=== PATIENT | female | born 1965 | race Caucasian/White ===

== ENCOUNTER 2017-06-17 15:27 | Emergency (ER) | payer OTHER ==
[2017-06-17] MEDS ORDERED: PEPCID IV ONE (17:33)
[2017-06-17] MEDS ORDERED: LIDOCAINE VISCOUS 2% MM STA (17:33)
--- NOTE | 2017-06-17 17:35 | Emergency Department Report ---
ED General Adult HPI - General Chief complaint: Allergic Reaction Stated complaint: ALLERGIC REACTION Time Seen by Provider: 06/17/17 17:28 Source: patient, RN notes reviewed Mode of arrival: Stretcher Limitations: No Limitations - History of Present Illness Initial comments: This is a 52-year-old female. She is previously unknown to me. She has a past medical history of hypertension and migraine disorder. She reports exquisite sensitivity to seafood. She reports that she was out eating, and smelled seafood, and began to have a scratchy sensation in her throat. She self- administered epinephrine. This started at 2:00 PM. Her symptoms are mostly resolved. She still feels somewhat anxious, and subjectively feels like her throat is scratchy. No headache, neck pain, chest pain, abdominal pain or stridor. -: Sudden Location: face Consistency: now resolved Improves with: medication Associated Symptoms: denies other symptoms - Related Data Previous Rx's Medication Instructions Recorded Last Taken Type EPINEPHrine [Epipen 2-Claude] 0.3 mg IM DAILY PRN #2 ml 06/17/17 Unknown Rx Famotidine [Pepcid] 20 mg PO BID #10 tablet 06/17/17 Unknown Rx diphenhydrAMINE [Benadryl] 50 mg PO Q8HR PRN #20 capsule 06/17/17 Unknown Rx Allergies Allergy/AdvReac Type Severity Reaction Status Date / Time iodine Allergy Angioedema Verified 06/17/17 15:53 Penicillins Allergy Angioedema Verified 06/17/17 15:53 shellfish derived Allergy Angioedema Verified 06/17/17 15:53 ED Review of Systems ROS: Stated complaint: ALLERGIC REACTION Other details as noted in HPI Constitutional: denies: fever Eyes: denies: vision change ENT: throat pain. denies: epistaxis, congestion Respiratory: denies: shortness of breath Cardiovascular: denies: chest pain Gastrointestinal: denies: abdominal pain Genitourinary: denies: urgency, dysuria Musculoskeletal: denies: back pain Skin: denies: lesions Neurological: weakness. denies: headache Psychiatric: anxiety ED Past Medical Hx - Past Medical History Previous Medical History?: Yes Hx Hypertension: Yes Hx Kidney Stones: Yes - Surgical History Past Surgical History?: Yes Additional Surgical History: breast biopsy - Social History Smoking Status: Never Smoker Substance Use Type: Alcohol - Medications Home Medications: Home Medications Medication Instructions Recorded Confirmed Last Taken Type EPINEPHrine [Epipen 2-Claude] 0.3 mg IM DAILY PRN #2 ml 06/17/17 Unknown Rx Famotidine [Pepcid] 20 mg PO BID #10 tablet 06/17/17 Unknown Rx diphenhydrAMINE [Benadryl] 50 mg PO Q8HR PRN #20 capsule 06/17/17 Unknown Rx ED Physical Exam - General Limitations: No Limitations General appearance: alert, in no apparent distress - Head Head exam: Present: atraumatic, normocephalic - Eye Eye exam: Present: normal appearance, EOMI. Absent: nystagmus - ENT ENT exam: Present: normal exam, normal orophraynx, mucous membranes moist, TM's normal bilaterally, normal external ear exam, other (the patient is speaking in full sentences. There is no stridor or dysphonia. There is no uvula swelling. There is no family tracheal manipulation) - Neck Neck exam: Present: normal inspection, full ROM. Absent: tenderness, meningismus - Respiratory Respiratory exam: Present: normal lung sounds bilaterally. Absent: respiratory distress, wheezes, rales, rhonchi, stridor, chest wall tenderness - Cardiovascular Cardiovascular Exam: Present: regular rate, normal rhythm, normal heart sounds. Absent: bradycardia, tachycardia, irregular rhythm, systolic murmur, diastolic murmur, rubs, gallop - GI/Abdominal GI/Abdominal exam: Present: soft, normal bowel sounds. Absent: distended, tenderness, guarding, rebound, rigid, pulsatile mass - Extremities Exam Extremities exam: Present: normal inspection, full ROM, normal capillary refill. Absent: tenderness, pedal edema, joint swelling, calf tenderness - Back Exam Back exam: Present: normal inspection, full ROM. Absent: tenderness, CVA tenderness (R), CVA tenderness (L), muscle spasm, paraspinal tenderness, vertebral tenderness - Neurological Exam Neurological exam: Present: alert, oriented X3, normal gait, other (Extraocular movements intact. Tongue midline. No facial droop. Facial sensation intact to light touch in the V1, V2, V3 distribution bilaterally. 5 and 5 strength in 4 extremities.. Sensation is intact to light touch in 4 extremities.). Absent : motor sensory deficit - Psychiatric Psychiatric exam: Present: anxious - Skin Skin exam: Present: warm, dry, intact, normal color. Absent: rash ED Course Vital Signs 06/17/17 06/17/17 15:53 18:40 Temperature 98 F Pulse Rate 77 64 Respiratory 16 16 Rate Blood Pressure 112/75 Blood Pressure 101/64 [Left] O2 Sat by Pulse 96 96 Oximetry ED Medical Decision Making - Lab Data Vital Signs 06/17/17 06/17/17 15:53 18:40 Temperature 98 F Pulse Rate 77 64 Respiratory 16 16 Rate Blood Pressure 112/75 Blood Pressure 101/64 [Left] O2 Sat by Pulse 96 96 Oximetry - Medical Decision Making Differential diagnosis: Allergic reaction, mild, pharyngitis Assessment and plan: 52-year-old female who is approximately 5 and half hours status post exposure to known allergens. She is afebrile with reassuring vital signs, speaking in full sentences, without stridor, dysphonia or clinical indication of upper airway compromise. Her initial physical exam was unremarkable, and her. Physical exam is unremarkable. She self-administered epinephrine and gave herself Benadryl prior to my evaluation prior to coming to the hospital. Patient has remained clinically stable at this time, with no evidence of airway compromise, or swelling, therefore I don't think she requires a steroid pack to go home with. I will refill her epinephrine prescription, discharged with Pepcid, and as needed Benadryl. Patient informed about hyperbaric medical risk for biphasic allergic reaction, and she understands that her symptoms may recur and/or bounce back. She is reliable for discharge at this point time, and family is accompanying her. Critical care attestation.: If time is entered above; I have spent that time in minutes in the direct care of this critically ill patient, excluding procedure time. ED Disposition Clinical Impression: Allergy history, seafood Disposition: DC-01 TO HOME OR SELFCARE Is pt being admited?: No Does the pt Need Aspirin: No Condition: Stable Instructions: Allergies (ED) Additional Instructions: Take medications as directed. Follow-up with a primary care doctor within the next 7-10 days. Return to the ER right away with fevers, chills, chest pain, shortness of breath, intractable nausea or vomiting, inability to speak, inability to breathe, swelling of the lips, mouth, uvula. Prescriptions: diphenhydrAMINE [Benadryl] 50 mg PO Q8HR PRN #20 capsule PRN Reason: Allergic Reaction EPINEPHrine [Epipen 2-Claude] 0.3 mg IM DAILY PRN #2 ml PRN Reason: Allergic Reaction Famotidine [Pepcid] 20 mg PO BID #10 tablet Referrals: PRIMARY CAREMD [Primary Care Provider] - 3-5 Days SHERRY MATOS MD [Staff Physician] - 3-5 Days Forms: Work/School Release Form(ED)
[2017-06-17 18:42] VITALS: BP 101/64
== END 2017-06-17 19:27 | disposition home or self-care (01) ==
LOC: ED 15:27
DX: T78.40XA Allergy, unspecified, initial encounter (principal); I10 Essential (primary) hypertension; Z91.013 Allergy to seafood; Z88.8 Allergy status to other drugs, medicaments and biological substances; Z88.0 Allergy status to penicillin
CPT/HCPCS: 96374; 96375; 99283; J2930